=== PATIENT | female | born 1970 | race Caucasian/White ===

== ENCOUNTER 2019-12-16 17:14 | Emergency (ER) | payer MEDICAID ==
[2019-12-16] MEDS ORDERED: Prochlorperazine 10 MG/2 ML SDV IVPUSH ONE (18:04)
[2019-12-16] MEDS ORDERED: Sodium Chloride 0.9% 10 ML Syringe FLUSH PRN (18:04)
--- NOTE | 2019-12-16 18:04 | EDM.PDOC ---
ED HPI GENERAL MEDICAL PROBLEM - General Chief Complaint: Abdominal Pain Stated Complaint: SOB,ABDOMINAL PAIN,COUGH,VOMITING Time Seen by Provider: 12/16/19 18:03 Source of Information: Reports: Patient. Denies: Old Records History Limitations: Reports: Other (no old records) - History of Present Illness INITIAL COMMENTS - FREE TEXT/NARRATIVE: 49 yo female presents with diarrhea and bloating for about a week, and nausea with one episode of vomiting today. No fever. Feels jittery and has mild SOB. No cardiac hx. Has a hx of some depression/anxiety. Drinks usually about 3 al coholic drinks/day, but has cut down over the past month. The sx's she presents with today are getting worse over the past week. Here with her . Onset: Gradual Duration: Week(s): (1), Getting Worse Location: Reports: Chest, Abdomen Quality: Reports: Other (bloating) Severity: Moderate Improves with: Reports: None Worsens with: Reports: Other (time) Context: Reports: Other (See HPI) Associated Symptoms: Reports: Chest Pain (mild), Nausea/Vomiting, Shortness of Breath. 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) Abdomen Pain Score (Numeric/FACES): 7 - Related Data Allergies Allergy/AdvReac Type Severity Reaction Status Date / Time No Known Allergies Allergy Verified 12/16/19 17:40 Home Meds: Home Meds Escitalopram Oxalate [Lexapro] 20 mg PO DAILY 12/16/19 [History] Loratadine [Claritin] 10 mg PO DAILY 12/16/19 [History] Omeprazole 40 mg PO DAILY 12/16/19 [History] Temazepam 22.5 mg PO BEDTIME PRN 12/16/19 [History] traMADol [Ultram] 50 mg PO Q6H PRN 12/16/19 [History] Past Medical History Cardiovascular History: Reports: None Respiratory History: Reports: Bronchitis, Recurrent Gastrointestinal History: Reports: GERD Genitourinary History: Reports: Other (See Below) Other Genitourinary History: hole in kidney repaired on own [employer] RE[employer]ENTATIVE History: Reports: Dysfunctional Uterine Bleeding, Endometrial Ablation Musculoskeletal History: Reports: Arthritis Neurological History: Reports: Migraines Other Neuro History: take botox q 12 weeks Psychiatric History: Reports: Depression Other Endocrine/Metabolic History: 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 Hematologic History: Reports: None Immunologic History: Reports: None Oncologic (Cancer) History: Reports: None Dermatologic History: Reports: None - Infectious Disease History Infectious Disease History: Reports: None - Past Surgical History HEENT Surgical History: Reports: Adenoidectomy, Tonsillectomy GI Surgical History: Reports: None Female Surgical History: Reports: Hysterectomy, Tubal Ligation Musculoskeletal Surgical History: Reports: Knee Replacement Social & Family History - Tobacco Use Smoking Status *Q: Never Smoker - Caffeine Use Caffeine Use: Reports: Soda - Recreational Drug Use Recreational Drug Use: No ED ROS GENERAL - Review of Systems Review Of Systems: See Below Constitutional: Reports: Malaise, Decreased Appetite. Denies: Fever, Chills HEENT: Reports: No Symptoms Respiratory: Reports: Shortness of Breath. Denies: Wheezing, Pleuritic Chest Pain, Cough, Sputum, Hemoptysis Cardiovascular: Reports: Chest Pain, Lightheadedness. Denies: Edema, Orthopnea, Syncope Endocrine: Reports: No Symptoms GI/Abdominal: Reports: Diarrhea, Decreased Appetite, Distension, Nausea, Vomiting. Denies: Black Stool, Bloody Stool, Constipation, Difficulty Swallowing, Flatus, Hematemesis, Hematochezia : Reports: No Symptoms Musculoskeletal: Reports: No Symptoms Skin: Reports: No Symptoms Neurological: Reports: No Symptoms Psychiatric: Reports: Anxiety ED EXAM, GENERAL - Physical Exam Exam: See Below Exam Limited By: No Limitations General Appearance: Alert, WD/WN, Anxious Eye Exam: Bilateral Eye: Normal Inspection Ears: Normal External Exam, Normal Canal, Hearing Grossly Normal, Normal TMs Ear Exam: Bilateral Ear: Auricle Normal, Canal Normal Nose: Normal Inspection, No Blood Throat/Mouth: Normal Inspection, Normal Lips, Normal Oropharynx, Normal Voice, No Airway Compromise Head: Atraumatic, Normocephalic Neck: Normal Inspection Respiratory/Chest: No Respiratory Distress, Lungs Clear, Normal Breath Sounds, No Accessory Muscle Use Cardiovascular: Regular Rate, Rhythm, No Edema, Tachycardia GI/Abdominal: Normal Bowel Sounds, Soft, Non-Tender, No Distention Back Exam: Normal Inspection. No: CVA Tenderness (R), CVA Tenderness (L) Extremities: Normal Inspection, Normal Range of Motion, Non-Tender, No Pedal Edema Neurological: Alert, Oriented, CN II-XII Intact, Normal Cognition, No Motor/Sensory Deficits Psychiatric: Anxious Skin Exam: Warm, Dry, Intact, Normal Color, No Rash EKG INTERPRETATION EKG Date: 12/16/19 Time: 17:55 Rhythm: NSR Rate (Beats/Min): 101 [place]: Normal P-Wave: Present QRS: Normal ST-T: Normal QT: Normal Comparison: NA - No Prior EKG Course - Vital Signs Last Recorded V/S: Last Vital Signs Temp 36.5 C 12/16/19 17:38 Pulse 104 H 12/16/19 18:16 Resp 21 H 12/16/19 18:16 BP 157/106 H 12/16/19 18:16 Pulse Ox 100 12/16/19 18:16 - Orders/Labs/Meds Orders: Active Orders 24 hr Category Date Time Status EKG Documentation Completion [RC] ASDIRECTED Care 12/16/19 18:01 Active Sodium Chloride 0.9% [Saline Flush] Med 12/16/19 18:04 Active 10 ml FLUSH ASDIRECTED PRN Saline Lock Insert [OM.PC] Routine Oth 12/16/19 18:04 Ordered EKG 12 Lead [EK] Routine Ther 12/16/19 18:01 Ordered Medication Orders Sodium Chloride (Saline Flush) 10 ml FLUSH ASDIRECTED PRN PRN Reason: Keep Vein Open Last Admin: 12/16/19 18:52 Dose: 10 ml Documented by: PREILOR Labs: Laboratory Tests 12/16/19 Range/Units 18:16 Sodium 139 L (140-148) mmol/L Potassium 3.8 (3.6-5.2) mmol/L Chloride 102 (100-108) mmol/L Carbon Dioxide 22 (21-32) mmol/L Anion Gap 18.8 H (5.0-14.0) mmol/L BUN 12 (7-18) mg/dL Creatinine 1.1 H (0.6-1.0) mg/dL Est Cr Clr Drug Dosing 69.15 mL/min Estimated GFR (MDRD) 53 L (>60) Glucose 100 (74-106) mg/dL Calcium 9.1 (8.5-10.1) mg/dL Total Bilirubin 0.5 (0.2-1.0) mg/dL AST 34 (15-37) U/L ALT 37 (12-78) U/L Alkaline Phosphatase 76 (46-116) U/L Total Protein 7.8 (6.4-8.2) g/dL Albumin 4.2 (3.4-5.0) g/dL Globulin 3.6 H (2.3-3.5) g/dL Albumin/Globulin Ratio 1.2 (1.2-2.2) Meds: Medications Generic Name Dose Route Start Last Admin Trade Name Freq PRN Reason Stop Dose Admin Sodium Chloride 10 ml 12/16/19 18:04 12/16/19 18:52 Saline Flush FLUSH 10 ml ASDIRECTED PRN Administration Keep Vein Open Discontinued Medications Generic Name Dose Route Start Last Admin Trade Name Freq PRN Reason Stop Dose Admin Diphenhydramine HCl 25 mg 12/16/19 18:05 12/16/19 18:32 Benadryl IVPUSH 12/16/19 18:06 25 mg ONETIME ONE Administration Diphenoxylate HCl/Atropine 1 tab 12/16/19 19:04 12/16/19 19:14 Lomotil 0.025-2.5 Mg PO 12/16/19 19:05 1 tab ONETIME ONE Administration Lactated Ringer's 1,000 mls @ 1,000 mls/hr 12/16/19 18:16 12/16/19 18:30 Ringers, Lactated IV 12/16/19 19:15 1,000 mls/hr BOLUS ONE Administration Prochlorperazine Edisylate 10 mg 12/16/19 18:04 12/16/19 18:32 Compazine IVPUSH 12/16/19 18:05 10 mg ONETIME ONE Administration Simethicone 160 mg 12/16/19 18:16 12/16/19 18:31 Simethicone PO 12/16/19 18:17 160 mg ONETIME ONE Administration - Re-Assessments/Exams Free Text/Narrative Re-Assessment/Exam: 12/16/19 19:21 Feeling much better after treatment Departure - Departure Time of Disposition: 19:40 Disposition: Home, Self-Care 01 Condition: Fair Clinical Impression: Viral gastroenteritis, Anxiety - Discharge Information *PRESCRIPTION DRUG MONITORING PROGRAM REVIEWED*: Not Applicable *COPY OF PRESCRIPTION DRUG MONITORING REPORT IN PATIENT FAISAL: Not Applicable Instructions: Viral Gastroenteritis, Adult, [id number] Referrals: PCP,None [Primary Care Provider] - Forms: ED Department Discharge Additional Instructions: Use loperamide per package instructions for diarrhea control. Take acetaminophen up to 1000 mg every 6 hrs as needed for pain or fever control. Use Zofran ODT every 8 hrs as needed for nausea control. Use simethicone per package instructions for bloating/gas(this is over the counter). Eat foods that are easy to digest like: yogurt, applesauce, chicken with rice soup, soda crackers, jello, bananas, any clear liquid. Recheck later this week with your provider if not improving. Sepsis Event Note (ED) - Evaluation Sepsis Screening Result: Possible Sepsis Risk - Focused Exam Vital Signs: Vital Signs Temp Pulse Resp BP Pulse Ox 12/16/19 18:16 104 H 21 H 157/106 H 100 12/16/19 17:38 36.5 C 114 H 23 H 167/110 H 99 12/16/19 17:27 36.5 C 114 H 23 H 167/110 H 99 - My Orders Last 24 Hours: My Active Orders 12/16/19 18:01 EKG Documentation Completion [RC] ASDIRECTED EKG 12 Lead [EK] Routine 12/16/19 18:04 Sodium Chloride 0.9% [Saline Flush] 10 ml FLUSH ASDIRECTED PRN Saline Lock Insert [OM.PC] Routine - Assessment/Plan Last 24 Hours: My Active Orders 12/16/19 18:01 EKG Documentation Completion [RC] ASDIRECTED EKG 12 Lead [EK] Routine 12/16/19 18:04 Sodium Chloride 0.9% [Saline Flush] 10 ml FLUSH ASDIRECTED PRN Saline Lock Insert [OM.PC] Routine
[2019-12-16] MEDS ORDERED: diphenhydrAMINE 50 MG/ML SDV IVPUSH ONE (18:05)
[2019-12-16] MEDS ORDERED: Simethicone 80 MG Tab.Chew PO ONE (18:16)
[2019-12-16] MEDS ORDERED: Lactated Ringers 1,000 ML IV ONE (18:16)
[2019-12-16] MEDS ORDERED: Atropine/Diphenoxylate 0.025-2.5 MG Tab PO ONE (19:04)
== END 2019-12-16 19:33 | disposition home or self-care (01) ==
LOC: JP.ED 17:14
DX: A08.4 Viral intestinal infection, unspecified (principal); F41.9 Anxiety disorder, unspecified; K21.9 Gastro-esophageal reflux disease without esophagitis; F32.9 Major depressive disorder, single episode, unspecified; Z79.899 Other long term (current) drug therapy
CPT/HCPCS: 36415; 80053; 93005; 96361; 96374; 96375; 99285; A9270; J0780; J1200; J7120

== ENCOUNTER 2020-08-22 19:24 | Emergency (ER) | payer MEDICAID ==
[2020-08-22] MEDS ORDERED: HYDROmorphone 1 MG/ML Syringe IM ONE (20:54)
--- NOTE | 2020-08-22 21:36 | EDM.PDOC ---
ED HPI GENERAL MEDICAL PROBLEM - General Chief Complaint: Lower Extremity Injury/Pain Stated Complaint: KNEE REVISION LAST WEEK, LOTS OF PAIN Time Seen by Provider: 08/22/20 20:46 Source of Information: Reports: Patient History Limitations: Reports: No Limitations - History of Present Illness INITIAL COMMENTS - FREE TEXT/NARRATIVE: Bonny is a 49-year-old female presenting to the ED for pain related to a recent revision of her left knee done at [facility]. The patient has been having issues with getting her pain medications due to prior authorization complications with her insurance company. She has been out of her oxycodone for the last 24 hours and has intolerable pain in the left knee. She continues to try to work with her orthopedic surgeon in [place], however, they have not been able to resolve the issue with the prescription. She is here for help to try to control her pain. He denies any injuries. left knee Pain Score (Numeric/FACES): 9 - Related Data Allergies Allergy/AdvReac Type Severity Reaction Status Date / Time No Known Allergies Allergy Verified 08/22/20 20:19 Home Meds: Home Meds Escitalopram Oxalate [Lexapro] 20 mg PO DAILY 12/16/19 [History] Loratadine [Claritin] 10 mg PO DAILY 12/16/19 [History] Omeprazole 40 mg PO DAILY 12/16/19 [History] Temazepam 60 mg PO BEDTIME PRN 12/16/19 [History] traMADol [Ultram] 50 mg PO Q6H PRN 12/16/19 [History] Aspirin [Halfprin] 162 mg PO DAILY 08/22/20 [History] hydrOXYzine HCL [Hydroxyzine HCl] 50 mg PO Q6H 08/22/20 [History] Past Medical History HEENT History: Reports: Impaired Vision, Other (See Below) Other HEENT History: glasses Cardiovascular History: Reports: Other (See Below) Other Cardiovascular History: Long QT syndrome Respiratory History: Reports: Bronchitis, Recurrent Gastrointestinal History: Reports: GERD Genitourinary History: Reports: UTI, Recurrent, Other (See Below) Other Genitourinary History: hole in kidney repaired on own [employer] History: Reports: Dysfunctional Uterine Bleeding, Endometrial Ablation Musculoskeletal History: Reports: Arthritis Neurological History: Reports: Migraines Other Neuro History: take botox q 12 weeks Psychiatric History: Reports: Depression Endocrine/Metabolic History: Reports: Other (See Below) Other Endocrine/Metabolic History: 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 Hematologic History: Reports: None Immunologic History: Reports: None Oncologic (Cancer) History: Reports: None Dermatologic History: Reports: None - Infectious Disease History Infectious Disease History: Reports: Chicken Pox - Past Surgical History HEENT Surgical History: Reports: Adenoidectomy, LASIK, Tonsillectomy Female Surgical History: Reports: Hysterectomy, Tubal Ligation Neurological Surgical History: Reports: Other (See Below) Other Neurological Surgeries/Procedures: lumbar ablation Musculoskeletal Surgical History: Reports: Knee Replacement, Other (See Below) Other Musculoskeletal Surgeries/Procedures:: left knee revision Social & Family History - Tobacco Use Tobacco Use Status *Q: Never Tobacco User - Caffeine Use Caffeine Use: Reports: Soda - Recreational Drug Use Recreational Drug Use: No Review of Systems - Review of Systems Review Of Systems: See Below Constitutional: Reports: No Symptoms Eyes: Reports: No Symptoms Ears: Reports: No Symptoms Nose: Reports: No Symptoms Mouth/Throat: Reports: No Symptoms Respiratory: Reports: No Symptoms Cardiovascular: Reports: No Symptoms GI/Abdominal: Reports: No Symptoms Genitourinary: Reports: No Symptoms Musculoskeletal: Reports: Joint Pain (Left knee pain postoperative) Skin: Reports: No Symptoms Neurological: Reports: No Symptoms Psychiatric: Reports: No Symptoms ED EXAM, GENERAL - Physical Exam Exam: See Below Exam Limited By: No Limitations General Appearance: Alert, Moderate Distress Extremities: No Pedal Edema, Joint Swelling (Postoperative swelling of the left knee.), Limited Range of Motion (Postoperative limited range of motion of the knee.), Other (Surgical wound is clean, dry, intact.). No: Increased Warmth, Redness Neurological: Alert, Oriented, Normal Cognition, No Motor/Sensory Deficits Skin Exam: Warm, Dry, Normal Color, No Rash, Wound/Incision (Wound is clean, dry, intact. Dressing is also dry.). No: Erythema Lymphatic: No Adenopathy Course - Vital Signs Last Recorded V/S: Last Vital Signs Temp 36.7 C 08/22/20 20:24 Pulse 108 H 08/22/20 20:24 Resp 16 08/22/20 20:24 BP 132/93 H 08/22/20 20:24 Pulse Ox 97 08/22/20 20:24 - Orders/Labs/Meds Meds: Medications Discontinued Medications Generic Name Dose Route Start Last Admin Trade Name Rajesh PRN Reason Stop Dose Admin Hydromorphone HCl 1 mg 08/22/20 20:54 08/22/20 21:15 Hydromorphone 1 Mg/Ml Syringe IM 08/22/20 20:55 1 mg ONETIME ONE Administration Departure - Departure Time of Disposition: 21:35 Disposition: Home, Self-Care 01 Clinical Impression: Postoperative pain of left knee - Discharge Information Instructions: Pain Relief Before and After Surgery, Pain Medicine Instructions, [id number] Referrals: PCP,None [Primary Care Provider] - Care Plan Goals: I sent a prescription out to the [facility] for Percocet 5/325 mg. You may take 1 to 2 tablets every 4-6 hours as needed. I can only prescribe you 12 tablets so try to use them sparingly. Sepsis Event Note (ED) - Evaluation Sepsis Screening Result: No Definite Risk - Focused Exam Vital Signs: Vital Signs Temp Pulse Resp BP Pulse Ox 08/22/20 20:24 36.7 C 108 H 16 132/93 H 97 08/22/20 19:46 36.7 C 108 H 16 132/93 H 97 - Problem List & Annotations (1) Postoperative pain of left knee SNOMED Code(s): 58139416 Code(s): G89.18 - OTHER ACUTE POSTPROCEDURAL PAIN; M25.562 - PAIN IN LEFT KNEE Status: Acute Priority: Medium Current Visit: Yes - Problem List Review Problem List Initiated/Reviewed/Updated: Yes
== END 2020-08-22 21:50 | disposition home or self-care (01) ==
LOC: JP.ED 19:24
DX: G89.18 Other acute postprocedural pain (principal); M25.562 Pain in left knee; K21.9 Gastro-esophageal reflux disease without esophagitis; Z79.899 Other long term (current) drug therapy; Z79.82 Long term (current) use of aspirin; Z90.710 Acquired absence of both cervix and uterus
CPT/HCPCS: 96372; 99283; J1170

== ENCOUNTER 2021-03-29 18:18 | Emergency (ER) | payer MEDICAID ==
--- NOTE | 2021-03-29 18:57 | EDM.PDOCBH ---
<Finn Orozco - Last Filed: 03/29/21 19:46> ED HPI GENERAL MEDICAL PROBLEM - General Chief Complaint: Drug or Alcohol Abuse Stated Complaint: EVAL Time Seen by Provider: 03/29/21 18:24 Source of Information: Reports: Patient, Police History Limitations: Reports: No Limitations - History of Present Illness INITIAL COMMENTS - FREE TEXT/NARRATIVE: Kristin is a 50-year-old female presenting to the ED with [place] law enforcement for evaluation of suicide ideation and alcohol intoxication. Kristin apparently was attempting suicide and took her mother's 38 caliber pistol and fired it to make sure there would not jam. She shot 1 shot out the back door and took a second shot out the back door at which point her approached her and obtained the gun. The patient was intending to put the gun in her mouth for the third shot. The patient reports to me that she has an alcoholic and has been struggling with alcohol addiction for the last 20 years. She suffers from anxiety and depression and is on medications for this which her clinician has been increasing doses of to treat her depression, however, this resulted in the patient drinking more thereby causing worsening of her depression. The patient was notified by her clinician that she is developing tar dive dyskinesia likely due to her antidepressants. She states that she is involved in a outpatient alcohol treatment center in [place] but is reluctant to go inpatient because she has to 13-year-old dogs that she is uncertain would do well without her. The patient is very tearful and communicating without difficulty. She has a great deal of shame that she expresses for her current situation. The patient was under the impression that her was going to leave her today because he has had enough of her alcoholism. reports that the patient told him that today was the last day she was going to drink but apparently has been a rough day for the patient today. The patient is right now is calm and cooperative. Law enforcement is secured the weapons. Patient does report that several years ago she was on methadone being administered by a pain clinic in the [place] area for many years and finally got herself off of it shortly before the federal government shutdown the methadone clinic. - Related Data Allergies Allergy/AdvReac Type Severity Reaction Status Date / Time No Known Allergies Allergy Verified 03/29/21 18:36 Home Meds: Home Meds Loratadine [Claritin] 10 mg PO DAILY 12/16/19 [History] Omeprazole 40 mg PO DAILY 12/16/19 [History] Temazepam 60 mg PO BEDTIME PRN 12/16/19 [History] traMADol [Ultram] 50 mg PO Q6H PRN 12/16/19 [History] DULoxetine [Cymbalta] 30 mg PO DAILY 03/29/21 [History] Ethinyl Estradiol/Drospirenone [Loryna 3 mg-0.02 mg Tablet] 1 each PO DAILY 03/29/21 [History] Ondansetron [Ondansetron ODT] 4 mg PO Q6H PRN 03/29/21 [History] SUMAtriptan [Imitrex] 6 mg SQ ASDIRECTED 03/29/21 [History] buPROPion HCL [Bupropion Xl] 300 mg PO DAILY 03/29/21 [History] DULoxetine HCl [Duloxetine HCl] 60 mg PO DAILY 03/30/21 [History] Past Medical History HEENT History: Reports: Impaired Vision, Other (See Below) Other HEENT History: glasses Cardiovascular History: Reports: Other (See Below) Other Cardiovascular History: Long QT syndrome Respiratory History: Reports: Bronchitis, Recurrent Gastrointestinal History: Reports: GERD Genitourinary History: Reports: UTI, Recurrent, Other (See Below) Other Genitourinary History: hole in kidney repaired on own TRANSPORT MANAGER History: Reports: Dysfunctional Uterine Bleeding, Endometrial Ablation Musculoskeletal History: Reports: Arthritis Neurological History: Reports: Migraines Other Neuro History: take botox q 12 weeks Psychiatric History: Reports: Depression Endocrine/Metabolic History: Reports: Other (See Below) Other Endocrine/Metabolic History: 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 Hematologic History: Reports: None Immunologic History: Reports: None Oncologic (Cancer) History: Reports: None Dermatologic History: Reports: None - Infectious Disease History Infectious Disease History: Reports: Chicken Pox - Past Surgical History HEENT Surgical History: Reports: Adenoidectomy, LASIK, Tonsillectomy Female Surgical History: Reports: Hysterectomy, Tubal Ligation Neurological Surgical History: Reports: Other (See Below) Other Neurological Surgeries/Procedures: lumbar ablation Musculoskeletal Surgical History: Reports: Knee Replacement, Other (See Below) Other Musculoskeletal Surgeries/Procedures:: left knee revision Social & Family History - Caffeine Use Caffeine Use: Reports: Soda ED ROS GENERAL - Review of Systems Review Of Systems: See Below Constitutional: Reports: No Symptoms HEENT: Reports: No Symptoms Respiratory: Reports: No Symptoms Cardiovascular: Reports: No Symptoms Endocrine: Reports: No Symptoms GI/Abdominal: Reports: No Symptoms : Reports: No Symptoms Musculoskeletal: Reports: No Symptoms Skin: Reports: No Symptoms Neurological: Reports: Other (Newly diagnosed with tardive dyskinesia) Psychiatric: Reports: Anxiety, Depression, Suicidal Ideation (Patient was going to shoot herself in the mouth with a 38 caliber handgun.), Other (Alcoholism) Hematologic/Lymphatic: Reports: No Symptoms Immunologic: Reports: No Symptoms ED EXAM, BEHAVIORAL HEALTH - Physical Exam Exam: See Below Exam Limited By: No Limitations General Appearance: Alert, Anxious, Mild Distress, Other Eye Exam: Bilateral Eye: EOMI, PERRL Throat/Mouth: Normal Inspection, Normal Oropharynx, Normal Voice, No Airway Compromise Head: Atraumatic, Normocephalic Neck: Normal Inspection, Supple, Non-Tender, Full Range of Motion. No: Lymphadenopathy (R), Lymphadenopathy (L) Respiratory/Chest: No Respiratory Distress, Lungs Clear, Normal Breath Sounds Cardiovascular: Normal Peripheral Pulses, Regular Rate, Rhythm, No Murmur GI/Abdominal: Normal Bowel Sounds, Soft, Non-Tender Extremities: Normal Inspection Neurological: Alert, Normal Cognition, No Motor/Sensory Deficits, Oriented x 3 Psychiatric: Depressed Mood, Tearful, Poor Eye Contact, Suicidal Plan, Suicidal Thoughts Skin Exam: Warm, Dry, Intact COURSE, BEHAVIORAL HEALTH COMP - Course Re-Assessment/Re-Exam: I discussed with the patient the plan which would be to let her rest tonight to sober up. Her alcohol level is 249. In the morning we will have her assessed by behavioral health but she likely needs admission for suicide ideation. She is currently agreeable and voluntary, however she is holdable with a suicide ideation. Suicide precautions and CIWA management have been ordered. The remainder of her labs look unremarkable with a CBC showing a leukocyte count of 4.6, hemoglobin of 15.1, hematocrit of 44.7 and a platelet count of 532,000. Her comprehensive metabolic panel is normal with a sodium 139, potassium 3.8, chloride of 102, bicarbonate of 17, BUN of 11 with a creatinine 1.0 and a glucose of 120. Calcium is 8.9. Liver enzymes show an AST of 30, ALT of 25, alkaline phosphatase of 81. Urinalysis is negative for any acute infection. Urine is negative. Covid is negative. Urine drug screen is positive for benzodiazepines and tetrahydrocannabinoids. From a medical standpoint, the patient is cleared for psychiatric evaluation when she wyatt up. Patient is significantly tachycardic and hypertensive so we will give her metoprolol tartrate 50 mg p.o. to try to reduce her heart rate and blood pressure. 03/29/21 19:43 becoming a little more agitated as she is withdrawing from alcohol. She was given lorazepam 1 mg p.o. for the agitation. Departure - Departure Disposition: Home, Self-Care 01 Clinical Impression: Alcohol abuse, Severe major depression, Suicide ideation Alcohol intoxication Qualifiers: Complication of substance-induced condition: uncomplicated Qualified Code(s): F10.920 - Alcohol use, unspecified with intoxication, uncomplicated - Discharge Information Instructions: Alcohol Use Disorder, Alcohol Abuse and Dependence Information, Adult, Major Depressive Disorder, Adult, [id number], Suicidal Feelings: How to Help Yourself, Alcohol Intoxication, [id number], Alcohol Intoxication Referrals: Tara Washington MD [Primary Care Provider] - Forms: ED Department Discharge Care Plan Goals: Please avoid any further alcohol intake, continue your medications as prescribed, and follow the recommendations offered by the crisis intervention sofa back upholsterer. Return anytime if worsening or concerns. Sepsis Event Note (ED) - Evaluation Sepsis Screening Result: No Definite Risk <Braydon Robertson - Last Filed: 03/30/21 12:03> COURSE, BEHAVIORAL HEALTH COMP - Course Vital Signs: Last Vital Signs Temp 98.4 F 03/29/21 18:28 Pulse 108 H 03/30/21 05:34 Resp 16 03/30/21 05:34 BP 159/113 H 03/30/21 05:34 Pulse Ox 98 03/30/21 05:34 Orders, Labs, Meds: Laboratory Tests 03/29/21 03/29/21 03/29/21 Range/Units 18:25 18:25 18:25 WBC 4.6 (4.5-11.0) K/uL RBC 5.26 (3.30-5.50) M/uL Hgb 15.1 H (12.0-15.0) g/dL Hct 44.7 (36.0-48.0) % MCV 85 (80-98) fL MCH 29 (27-31) pg MCHC 34 (32-36) % Plt Count 532 H (150-400) K/uL Neut % (Auto) 50.0 (36-66) % Lymph % (Auto) 41.0 (24-44) % [place] % (Auto) 7.1 H (2-6) % Eos % (Auto) 0.4 L (2-4) % Baso % (Auto) 1.5 H (0-1) % Sodium 139 L (140-148) mmol/L Potassium 3.8 (3.6-5.2) mmol/L Chloride 102 (100-108) mmol/L Carbon Dioxide 17 L (21-32) mmol/L Anion Gap 23.8 H (5.0-14.0) mmol/L BUN 11 (7-18) mg/dL Creatinine 1.0 (0.6-1.0) mg/dL Est Cr Clr Drug Dosing 75.23 mL/min Estimated GFR (MDRD) 59 L (>60) Glucose 120 H (74-106) mg/dL Calcium 8.9 (8.5-10.1) mg/dL Total Bilirubin 0.3 (0.2-1.0) mg/dL AST 30 (15-37) U/L ALT 25 (12-78) U/L Alkaline Phosphatase 81 (46-116) U/L Total Protein 8.5 H (6.4-8.2) g/dL Albumin 4.1 (3.4-5.0) g/dL Globulin 4.4 H (2.3-3.5) g/dL Albumin/Globulin Ratio 0.9 L (1.2-2.2) Urine Color (YELLOW) Urine Appearance (CLEAR) Urine pH (5.0-8.0) Ur Specific [place] (1.008-1.030) Urine Protein (NEGATIVE) mg/dL Urine Glucose (UA) (NEGATIVE) mg/dL Urine Ketones (NEGATIVE) mg/dL Urine Occult Blood (NEGATIVE) Urine Nitrite (NEGATIVE) Urine Bilirubin (NEGATIVE) Urine Urobilinogen (0.2-1.0) EU/dL Ur Leukocyte Esterase (NEGATIVE) Urine RBC (0-5) Urine WBC (0-5) Ur Epithelial Cells Amorphous Sediment Urine Bacteria Urine Mucus Urine HCG, Qual Urine Opiates Screen (NEGATIVE) Ur Oxycodone Screen (NEGATIVE) Urine Methadone Screen (NEGATIVE) Ur Propoxyphene Screen (NEGATIVE) Ur Barbiturates Screen (NEGATIVE) Ur Tricyclics Screen (NEGATIVE) Ur Phencyclidine Scrn (NEGATIVE) Ur Amphetamine Screen (NEGATIVE) U Methamphetamines Scrn (NEGATIVE) Urine MDMA Screen (NEGATIVE) U Benzodiazepines Scrn (NEGATIVE) U Cocaine Metab Screen (NEGATIVE) U Marijuana (THC) Screen (NEGATIVE) Ethyl Alcohol 249 mg/dL SARS CoV-2 RNA Rapid ANN 03/29/21 03/29/21 03/29/21 Range/Units 18:44 18:44 18:44 WBC (4.5-11.0) K/uL RBC (3.30-5.50) M/uL Hgb (12.0-15.0) g/dL Hct (36.0-48.0) % MCV (80-98) fL MCH (27-31) pg MCHC (32-36) % Plt Count (150-400) K/uL Neut % (Auto) (36-66) % Lymph % (Auto) (24-44) % [place] % (Auto) (2-6) % Eos % (Auto) (2-4) % Baso % (Auto) (0-1) % Sodium (140-148) mmol/L Potassium (3.6-5.2) mmol/L Chloride (100-108) mmol/L Carbon Dioxide (21-32) mmol/L Anion Gap (5.0-14.0) mmol/L BUN (7-18) mg/dL Creatinine (0.6-1.0) mg/dL Est Cr Clr Drug Dosing mL/min Estimated GFR (MDRD) (>60) Glucose (74-106) mg/dL Calcium (8.5-10.1) mg/dL Total Bilirubin (0.2-1.0) mg/dL AST (15-37) U/L ALT (12-78) U/L Alkaline Phosphatase (46-116) U/L Total Protein (6.4-8.2) g/dL Albumin (3.4-5.0) g/dL Globulin (2.3-3.5) g/dL Albumin/Globulin Ratio (1.2-2.2) Urine Color Yellow (YELLOW) Urine Appearance Clear (CLEAR) Urine pH 6.5 (5.0-8.0) Ur Specific [place] 1.020 (1.008-1.030) Urine Protein 100 H (NEGATIVE) mg/dL Urine Glucose (UA) Negative (NEGATIVE) mg/dL Urine Ketones Negative (NEGATIVE) mg/dL Urine Occult Blood Negative (NEGATIVE) Urine Nitrite Negative (NEGATIVE) Urine Bilirubin Negative (NEGATIVE) Urine Urobilinogen 0.2 (0.2-1.0) EU/dL Ur Leukocyte Esterase Negative (NEGATIVE) Urine RBC 0-5 (0-5) Urine WBC 0-5 (0-5) Ur Epithelial Cells Moderate Amorphous Sediment Occasional Urine Bacteria Moderate Urine Mucus Occasional Urine HCG, Qual Negative Urine Opiates Screen Negative (NEGATIVE) Ur Oxycodone Screen Negative (NEGATIVE) Urine Methadone Screen Negative (NEGATIVE) Ur Propoxyphene Screen Negative (NEGATIVE) Ur Barbiturates Screen Negative (NEGATIVE) Ur Tricyclics Screen Negative (NEGATIVE) Ur Phencyclidine Scrn Negative (NEGATIVE) Ur Amphetamine Screen Negative (NEGATIVE) U Methamphetamines Scrn Negative (NEGATIVE) Urine MDMA Screen Negative (NEGATIVE) U Benzodiazepines Scrn Presumptive positive H (NEGATIVE) U Cocaine Metab Screen Negative (NEGATIVE) U Marijuana (THC) Screen Presumptive positive H (NEGATIVE) Ethyl Alcohol mg/dL SARS CoV-2 RNA Rapid ANN 03/29/21 Range/Units 18:57 WBC (4.5-11.0) K/uL RBC (3.30-5.50) M/uL Hgb (12.0-15.0) g/dL Hct (36.0-48.0) % MCV (80-98) fL MCH (27-31) pg MCHC (32-36) % Plt Count (150-400) K/uL Neut % (Auto) (36-66) % Lymph % (Auto) (24-44) % [place] % (Auto) (2-6) % Eos % (Auto) (2-4) % Baso % (Auto) (0-1) % Sodium (140-148) mmol/L Potassium (3.6-5.2) mmol/L Chloride (100-108) mmol/L Carbon Dioxide (21-32) mmol/L Anion Gap (5.0-14.0) mmol/L BUN (7-18) mg/dL Creatinine (0.6-1.0) mg/dL Est Cr Clr Drug Dosing mL/min Estimated GFR (MDRD) (>60) Glucose (74-106) mg/dL Calcium (8.5-10.1) mg/dL Total Bilirubin (0.2-1.0) mg/dL AST (15-37) U/L ALT (12-78) U/L Alkaline Phosphatase (46-116) U/L Total Protein (6.4-8.2) g/dL Albumin (3.4-5.0) g/dL Globulin (2.3-3.5) g/dL Albumin/Globulin Ratio (1.2-2.2) Urine Color (YELLOW) Urine Appearance (CLEAR) Urine pH (5.0-8.0) Ur Specific [place] (1.008-1.030) Urine Protein (NEGATIVE) mg/dL Urine Glucose (UA) (NEGATIVE) mg/dL Urine Ketones (NEGATIVE) mg/dL Urine Occult Blood (NEGATIVE) Urine Nitrite (NEGATIVE) Urine Bilirubin (NEGATIVE) Urine Urobilinogen (0.2-1.0) EU/dL Ur Leukocyte Esterase (NEGATIVE) Urine RBC (0-5) Urine WBC (0-5) Ur Epithelial Cells Amorphous Sediment Urine Bacteria Urine Mucus Urine HCG, Qual Urine Opiates Screen (NEGATIVE) Ur Oxycodone Screen (NEGATIVE) Urine Methadone Screen (NEGATIVE) Ur Propoxyphene Screen (NEGATIVE) Ur Barbiturates Screen (NEGATIVE) Ur Tricyclics Screen (NEGATIVE) Ur Phencyclidine Scrn (NEGATIVE) Ur Amphetamine Screen (NEGATIVE) U Methamphetamines Scrn (NEGATIVE) Urine MDMA Screen (NEGATIVE) U Benzodiazepines Scrn (NEGATIVE) U Cocaine Metab Screen (NEGATIVE) U Marijuana (THC) Screen (NEGATIVE) Ethyl Alcohol mg/dL SARS CoV-2 RNA Rapid ANN Negative Medications Discontinued Medications Generic Name Dose Route Start Last Admin Trade Name Freq PRN Reason Stop Dose Admin Bupropion HCl 300 mg 03/30/21 09:15 03/30/21 09:10 Bupropion 150 Mg Tab.Er PO 03/30/21 09:16 300 mg ONETIME ONE Administration Duloxetine HCl 90 mg 03/30/21 08:05 03/30/21 09:10 Duloxetine 30 Mg Cap PO 03/30/21 08:06 90 mg ONETIME ONE Administration Ibuprofen 600 mg 03/30/21 08:06 03/30/21 09:09 Ibuprofen 600 Mg Tab PO 03/30/21 08:07 600 mg ONETIME ONE Administration Lorazepam 0 mg 03/29/21 18:45 03/30/21 05:16 Lorazepam 1 Mg Tab PO 1 mg ASDIRECTED SHIRA Administration Protocol Lorazepam 1 mg 03/29/21 19:45 03/29/21 19:48 Lorazepam 1 Mg Tab PO 03/29/21 19:46 1 mg ONETIME ONE Administration Metoprolol Tartrate 50 mg 03/29/21 19:07 03/29/21 19:15 Metoprolol Tartrate 50 Mg Tab PO 03/29/21 19:08 50 mg ONETIME ONE Administration Ondansetron HCl 4 mg 03/29/21 21:24 03/29/21 21:35 Ondansetron 4 Mg Tab.Dis PO 03/29/21 21:25 4 mg ONETIME ONE Administration Tramadol HCl 50 mg 03/29/21 21:24 03/29/21 21:35 Tramadol 50 Mg Tab PO 50 mg Q6H PRN Administration Pain (moderate 4-6) Re-Assessment/Re-Exam: Care turned over at shift change awaiting psychiatric evaluation. Patient was asking for her regular medications, 300 mg of bupropion and 90 mg of duloxetine were ordered for the patient. She also asked for 150 mg of tramadol which apparently is a regular medication for her but I felt uncomfortable with her taking this this morning considering the alcohol abuse and addiction issues. She was given 600 mg of ibuprofen. Psychiatric crisis eval is pending in the ne xt hour. Departure - Departure Time of Disposition: 11:27 Sepsis Event Note (ED) - Focused Exam Vital Signs: Vital Signs Pulse Resp BP Pulse Ox 03/30/21 05:34 108 H 16 159/113 H 98
[2021-03-29] MEDS ORDERED: Metoprolol Tartrate 50 MG Tab PO ONE (19:07)
[2021-03-29] MEDS ORDERED: LORazepam 1 MG Tab PO ONE (19:45)
[2021-03-29] MEDS ORDERED: traMADol 50 MG Tab PO PRN (21:24)
[2021-03-29] MEDS ORDERED: Ondansetron 4 MG Tab.DIS PO ONE (21:24)
[2021-03-30] MEDS: LORazepam 1 MG Tab PO SCH ×2 (00:27→05:16)
[2021-03-30] MEDS ORDERED: buPROPion 150 MG Tab.SR PO ONE (08:04)
[2021-03-30] MEDS ORDERED: DULoxetine 30 MG Cap PO ONE (08:05)
[2021-03-30] MEDS ORDERED: Ibuprofen 600 MG Tab PO ONE (08:06)
[2021-03-30] MEDS ORDERED: buPROPion 150 MG Tab.ER PO ONE (09:15)
== END 2021-03-30 11:27 | disposition home or self-care (01) ==
LOC: JP.ED 18:18
DX: F10.120 Alcohol abuse with intoxication, uncomplicated (principal); F32.2 Major depressive disorder, single episode, severe without psychotic features; K21.9 Gastro-esophageal reflux disease without esophagitis; Z79.899 Other long term (current) drug therapy; Y90.8 Blood alcohol level of 240 mg/100 ml or more; Z20.822 Contact with and (suspected) exposure to COVID-19
CPT/HCPCS: 36415; 80053; 80305; 80307; 81001; 81025; 85025; 87635; 99285; A9270; U0002

== ENCOUNTER 2022-11-01 20:25 | Emergency (ER) | payer MEDICAID ==
[2022-11-01] MEDS ORDERED: Sodium Chloride 0.9% 1,000 ML IV SCH (21:15)
[2022-11-01] MEDS ORDERED: Dexamethasone 4 MG/ML SDV IVPUSH ONE (21:15)
[2022-11-01] MEDS ORDERED: Sodium Chloride 0.9% 10 ML Syringe FLUSH PRN (21:15)
[2022-11-01] MEDS ORDERED: Ketorolac 15 MG/ML SDV IVPUSH ONE (21:15)
[2022-11-01] MEDS ORDERED: Prochlorperazine 10 MG/2 ML SDV IVPUSH ONE (21:15)
[2022-11-01] MEDS ORDERED: diphenhydrAMINE 50 MG/ML SDV IVPUSH ONE (21:19)
[2022-11-01 21:30] LABS: BASOPHILS ABSOLUTE AUTO 0.02 K/uL (0.00-0.10); BASOPHILS PERCENT AUTO 0.2 % (0.1-1.3); EOSINOPHILS ABSOLUTE AUTO 0.01 K/uL (0.00-0.40); EOSINOPHILS PERCENT AUTO 0.1 % (0.0-5.4); HEMATOCRIT 36.6 % (34.3-46.0); HEMOGLOBIN 12.4 g/dL (11.2-15.5); IMMATURE GRAN ABSOLUTE AUTO 0.06 K/uL (0.00-0.23); IMMATURE GRAN PERCENT AUTO 0.6 % (0.0-0.7); LYMPHOCYTES ABSOLUTE AUTO 0.19 K/uL (0.8-3.3); MEAN CORPUSCULAR HEMOGLOBIN 29.3 pg (31.6-35.5); MEAN CORPUSCULAR HGB CONC 33.9 g/dL (31.6-35.5); MEAN CORPUSCULAR VOLUME 86.5 fL (81.4-99.0); MONOCYTES ABSOLUTE AUTO 0.39 K/uL (0.20-0.90); NEUTROPHILS ABSOLUTE AUTO 9.02 K/uL (1.0-7.6); NEUTROPHILS PERCENT AUTO 93.1 % (40.0-78.1); PLATELET COUNT,PLT 484 K/uL (130-375); RED BLOOD CELL COUNT 4.23 M/uL (3.77-5.24); WHITE BLOOD CELL COUNT,WBC 9.7 K/uL (3.2-11.0)
[2022-11-01 22:00] LABS: ALANINE AMINOTRANSFERASE,ALT 25 U/L (12-78); ALBUMIN 3.6 g/dL (3.4-5.0); ALKALINE PHOSPHATASE 74 U/L (46-116); ASPARTATE AMNIOTRANSFERASE,AST 22 U/L (15-37); BILIRUBIN TOTAL 0.6 mg/dL (0.2-1.0); BLOOD UREA NITROGEN,BUN 12 mg/dL (7-18); C-REACTIVE PROTEIN 2.11 mg/dL (0.0-0.3); CALCIUM 8.7 mg/dL (8.5-10.1); CARBON DIOXIDE,CO2 23 mmol/L (21-32); CHLORIDE,CL 102 mmol/L (100-108); CREATININE 0.8 mg/dL (0.6-1.0); EST CRCL DRUG DOSING (CG) 88.36 mL/min; ESTIMATED GFR 89 mL/min (>60); GLUCOSE RANDOM 126 mg/dL (74-106); PROTEIN TOTAL,TP 7.4 g/dL (6.4-8.2); SODIUM,NA 137 mmol/L (140-148)
[2022-11-01 22:02] LABS: ANION GAP 14.8 mmol/L (5.0-14.0); POTASSIUM,K 2.8 mmol/L (3.6-5.2)
[2022-11-01] MEDS ORDERED: Potassium Chloride 10 MEQ in Premix Bag 1 BAG IV ONE (22:11)
== END 2022-11-02 00:07 | disposition home or self-care (01) ==
LOC: JP.ED 20:25
DX: G43.919 Migraine, unspecified, intractable, without status migrainosus (principal); A08.4 Viral intestinal infection, unspecified; E86.0 Dehydration; E87.6 Hypokalemia; K21.9 Gastro-esophageal reflux disease without esophagitis; Z20.822 Contact with and (suspected) exposure to COVID-19; Z79.899 Other long term (current) drug therapy
CPT/HCPCS: 36415; 80053; 85025; 86140; 87635; 96361; 96374; 96375; 99284; J0780; J1100; J1200; J1885; J3480; J7030; U0002